=== PATIENT | female | born 1945 | race Caucasian/White ===

== ENCOUNTER 2018-09-04 05:21 | Observation (INO) | payer OTHER ==
[2018-09-04] MEDS: SOD CHLORIDE 0.9% 1,000 ML IV (07:01)
[2018-09-04] MEDS ORDERED: PROPOFOL 20 ML (07:25)
[2018-09-04] MEDS ORDERED: MIDAZOLAM 1 MG/ML 2 ML INJ (07:25)
[2018-09-04] MEDS ORDERED: CEFAZOLIN 1 GM INJ ×2 (07:25→10:24)
[2018-09-04] MEDS ORDERED: ROCURONIUM 50 MG INJ (07:25)
[2018-09-04] MEDS ORDERED: PHENYLephrine (100 MCG/ML) 10ML SYG (07:30)
[2018-09-04] MEDS ORDERED: DESFLURANE 15 MIN (07:30)
[2018-09-04] MEDS ORDERED: SUCCINYLCHOLINE CHLORIDE 100 MG/5 ML SYG IV (07:30)
[2018-09-04] MEDS ORDERED: EPHEDrine 25 MG/5 ML SYG (07:30)
[2018-09-04] MEDS: INSULIN REGULAR, HUMAN 100 UNIT/1 ML 3ML VIAL SC (07:37)
[2018-09-04] MEDS ORDERED: DEXAMETHASONE 4 MG/ML 5 ML INJ (08:25)
[2018-09-04] MEDS ORDERED: ONDANSETRON 4 MG INJ (08:25)
[2018-09-04] MEDS ORDERED: METOCLOPRAMIDE 10 MG INJ (08:25)
[2018-09-04] MEDS: LIDOCAINE 1.5%/EPI MPF (SDV) 30 ML VIAL (08:41)
[2018-09-04] MEDS: POLYMYXIN/BACITRACIN 1L IRRIG (08:41)
[2018-09-04] MEDS: BUPIVACAINE 0.5% (SDV) 30 ML INJ (08:41)
[2018-09-04] MEDS: THROMBIN 5000 UNIT VIAL (09:16)
[2018-09-04] MEDS: GELATIN SIZE 100 SPONGE (09:16)
[2018-09-04] MEDS ORDERED: HETASTARCH 6% NACL 500 ML (09:34)
[2018-09-04] MEDS ORDERED: SUGAMMADEX SODIUM 200 MG/2 ML VIAL IV (10:34)
[2018-09-04] MEDS ORDERED: METOCLOPRAMIDE 10 MG INJ IV (11:00)
[2018-09-04] MEDS ORDERED: ALBUTEROL 0.083% (NEB) 2.5 MG/3 ML AMP HHN (11:00)
[2018-09-04] MEDS ORDERED: ONDANSETRON 4 MG INJ IV (11:00)
[2018-09-04] MEDS ORDERED: HYDROmorphONE 1 MG/5 ML IV SYRINGE IV ×3 (11:00)
[2018-09-04] MEDS ORDERED: FENTAnyl 50 MCG/ML VIAL IV ×3 (11:00)
[2018-09-04] MEDS ORDERED: EPHEDrine 25 MG/5 ML SYG IV (11:00)
[2018-09-04] MEDS ORDERED: DIPHENHYDRAMINE 50 MG INJ IV (11:00)
[2018-09-04] MEDS ORDERED: LABETALOL HCL 20MG INJ IV (11:00)
[2018-09-04] MEDS ORDERED: hydrALAzine 20 MG INJ IV (11:00)
[2018-09-04] MEDS ORDERED: MEPERIDINE 25 MG INJ IV (11:00)
[2018-09-04] MEDS ORDERED: OXYCODONE/ACETAMINOPHEN (5/325) TAB PO (11:00)
[2018-09-04] MEDS: METHYLPREDNISOLONE ACET 80 MG/ML 1 ML (11:57)
[2018-09-04] MEDS ORDERED: INSULIN LISPRO 25 UNIT SQ (12:30)
[2018-09-04] MEDS ORDERED: CYCLOBENZAPRINE 10 MG TAB PO (13:00)
[2018-09-04] MEDS ORDERED: BISACODYL 10 MG SUPP PR (13:00)
[2018-09-04] MEDS ORDERED: NALOXONE (0.4 MG/ML) INJ IV (13:00)
[2018-09-04] MEDS ORDERED: GLUCAGON 1 MG INJ IM (15:30)
[2018-09-04] MEDS: LISINOPRIL 5 MG TAB PO (15:30)
[2018-09-04] MEDS ORDERED: GLUCOSE GEL 15 GRAM TUBE PO ×2 (15:30)
[2018-09-04] MEDS ORDERED: DEXTROSE 50% 50 ML SYRINGE IV ×2 (15:30)
[2018-09-04] MEDS ORDERED: GLUCOSE GEL 15 GRAM TUBE BUCCAL (15:30)
[2018-09-04] MEDS: ONDANSETRON 4 MG INJ IV (16:02)
[2018-09-04] MEDS: CEFAZOLIN 1 GM/50 ML (PMX) 50 ML IVPB ×2 (16:02→23:21)
[2018-09-04] MEDS: 1/2 NS + KCL 20 MEQ 1,000 ML IV (16:02)
[2018-09-04] MEDS: INSULIN ASPART [NOVOLOG] 3 ML PEN SC ×2 (18:35→21:06)
[2018-09-04] MEDS: ATORVASTATIN 10 MG TAB PO (21:01)
[2018-09-04] MEDS: METOPROLOL 25 MG TAB PO (21:02)
[2018-09-04] MEDS: DOCUSATE SODIUM 100 MG CAP PO (21:03)
[2018-09-04] MEDS: FAMOTIDINE 20 MG INJ IV (21:04)
[2018-09-04] MEDS: PREGABALIN 50 MG CAP PO (21:04)
[2018-09-04] MEDS: INSULIN GLARGINE [LANTus] (100 UNITS/ML) SYG SC (23:21)
[2018-09-04] MEDS: traMADol 50 MG TAB PO (23:58)
[2018-09-05] MEDS: ACCU-CHEK XX (02:49)
[2018-09-05] MEDS: 1/2 NS + KCL 20 MEQ 1,000 ML IV (02:49)
[2018-09-05 05:51] LABS: HEMOGLOBIN A1C 7.9 % (0-5.9)
[2018-09-05] MEDS: LEVOTHYROXINE 112 MCG TAB PO (08:41)
[2018-09-05] MEDS: CEFAZOLIN 1 GM/50 ML (PMX) 50 ML IVPB (08:42)
[2018-09-05] MEDS: PREGABALIN 50 MG CAP PO (08:45)
[2018-09-05] MEDS: DOCUSATE SODIUM 100 MG CAP PO (08:45)
[2018-09-05] MEDS: DULOXETINE 30 MG CAP DR PO (08:45)
[2018-09-05] MEDS: FAMOTIDINE 20 MG INJ IV (08:46)
[2018-09-05] MEDS: ALLOPURINOL 300 MG TAB PO (08:46)
[2018-09-05] MEDS: METOPROLOL 25 MG TAB PO (08:49)
[2018-09-05] MEDS: FUROSEMIDE 40 MG TAB PO (08:51)
[2018-09-05] MEDS: LISINOPRIL 5 MG TAB PO (08:51)
[2018-09-05] MEDS: INSULIN ASPART [NOVOLOG] 3 ML PEN SC ×4 (08:53→12:56)
[2018-09-05] MEDS: traMADol 50 MG TAB PO (13:44)
[2018-09-05] MEDS: ONDANSETRON 4 MG INJ IV (16:49)
== END 2018-09-05 17:10 ==
LOC: SDS 05:21 → REC 13:15 → MS1 14:40
PROVIDERS: Neurological Surgery
DX: M43.16 Spondylolisthesis, lumbar region (principal); M48.061 Spinal stenosis, lumbar region without neurogenic claudication; E11.9 Type 2 diabetes mellitus without complications; M10.9 Gout, unspecified; I10 Essential (primary) hypertension; E78.5 Hyperlipidemia, unspecified; E66.9 Obesity, unspecified; Z68.35 Body mass index [BMI] 35.0-35.9, adult; M19.90 Unspecified osteoarthritis, unspecified site
CPT/HCPCS: 63047; 71045; 72100; 82962; 83036; 87086; 97116; 97162; 97530